=== PATIENT | female | born 1960 | race Caucasian/White ===

== ENCOUNTER → 2016-05-11 | Outpatient (CLI) | payer BC ==
[2016-05-11 09:33] LABS: ALT 55 U/L (9-52); AST 36 U/L (14-36); Alkaline Phosphatase 64 U/L (38-126); Anion Gap 12 mmol/L; Blood Urea Nitrogen 18 mg/dL (7-17); Calcium 9.2 mg/dL (8.4-10.2); Carbon Dioxide 24 mmol/L (22-30); Chloride 106 mmol/L (98-107); Cholesterol 189 mg/dL (<200); Glucose 113 mg/dL (74-99); HDL Cholesterol 58 mg/dL (40-60); Non-African American GFR(MDRD) >60 (>60 ml/min/1.73 sqM); Potassium 4.3 mmol/L (3.5-5.1); Sodium 142 mmol/L (137-145); Total Bilirubin 0.8 mg/dL (0.2-1.3); Total Protein 7.5 g/dL (6.3-8.2); Triglycerides 163 mg/dL (<150)
== END | disposition home or self-care (01) ==
LOC: LABWHC1 09:00
PROVIDERS: ATTEND Internal Medicine Interventional Cardiology
DX: E78.5 Hyperlipidemia, unspecified (principal)
CPT/HCPCS: 36415; 80053; 80061; 84443

== ENCOUNTER → 2017-06-11 | Outpatient (CLI) | payer BC ==
--- NOTE | 2017-06-11 15:42 | BD ---
EXAMINATION TYPE: MG DEXA axial skeleton. DATE OF EXAM: 06/11/2017 CLINICAL HISTORY: Z13.820 screening Height: 62.5 Weight: 148 FRAX RISK QUESTIONS: Alcohol (3 or more units per day): no Family History (Parent hip fracture): no Glucocorticoids (More than 3mos): emergency inhaler..infrequently (Ex: prednisone, prednisolone, methylprednisolone, dexamethasone, and hydrocortisone). History of Fracture in Adulthood: no Secondary Osteoporosis: 1. Type 1 Diabetes: yes 2. Hyperthyroidism: no 3. Menopause before 45: no 4. Malnutrition: no 5. Chronic liver disease: no Rheumatoid Arthritis: no Current Tobacco Use: no RISK FACTORS HISTORY OF: Family History of Osteoporosis: no Active: yes Diet low in dairy products/other sources of calcium: at least one serving a day Postmenopausal woman: yes Take estrogen and/or progesterone medications: no Lost more than 2 inches in height since high school: no Frequent falls: no Poor Health: no Hyperparathyroidism: no Adrenal Insufficiency: no MEDICATIONS: Prednisone or other steroids: emergency inhaler How Long: several years Thyroid Medications: no Osteoporosis Medications: no Additional Medications: insulin , calcium & Vitamin D Additional History: diabetic ; arthritis neck EXAM MEASUREMENTS: Bone mineral densitometry was performed using the [employer] System. Bone mineral density as measured about the Lumbar spine is: ----- L1-L4(G/cm2): 1.155 T Score Values are as follows: ----- L2: -0.7 ----- L3: 0.0 ----- L4: 0.1 ----- L1-L4: -0.2 Bone mineral density has: Decreased -4.1% since study of: 10/01/2011 Bone mineral density about the R hip (g/cm2): 0.966 Bone mineral density about the L hip (g/cm2): 0.906 T Score values are as follows: -----R Neck: -1.0 -----L Neck: -1.2 -----R Total: -0.6 -----L Total: -0.7 Bone mineral density has: Decreased -0.3% since study of: 10/01/2011 IMPRESSION: No evidence for osteoporosis or osteopenia. NOTE: T-SCORE=SD OF THE YOUNG ADULT MEAN.
--- NOTE | 2017-06-12 12:00 | MM ---
Reason for exam: screening (asymptomatic). Last mammogram was performed 2 years and 5 months ago. History: Patient is postmenopausal and had first child at age 33. Physical Findings: A clinical breast exam by your physician is recommended on an annual basis and results should be correlated with mammographic findings. MG 3D Screening Mammo W/Cad Bilateral CC and MLO view(s) were taken. Prior study comparison: January 07, 2015, bilateral MG 3d screening mammo w/cad. March 10, 2013, bilateral digital screening mammo w/CAD. The breast tissue is heterogeneously dense. This may lower the sensitivity of mammography. There is a stable right upper outer quadrant mass back to 2015. No suspicious abnormality. No significant changes when compared with prior studies. ASSESSMENT: Benign, BI-RAD 2 RECOMMENDATION: Routine screening mammogram of both breasts in 1 year.
== END | disposition home or self-care (01) ==
LOC: RADMAMWWP 07:35
PROVIDERS: ATTEND Obstetrics & Gynecology
DX: Z12.31 Encounter for screening mammogram for malignant neoplasm of breast (principal); Z13.820 Encounter for screening for osteoporosis
CPT/HCPCS: 77063; 77067; 77080

== ENCOUNTER → 2020-04-19 | Outpatient (CLI) | payer BC ==
[2020-04-19 11:15] LABS: HCT 42.4 % (37.2-46.3); HGB 14.3 g/dL (12.0-15.0); MCH 30.4 pg (27.0-32.0); MCHC 33.7 g/dL (32.0-37.0); Mean Platelet Volume 10.8 fL (9.5-12.2); Platelet Count 216 X 10*3/uL (140-440); RBC 4.71 X 10*6/uL (4.10-5.20); RDW 12.5 % (11.5-14.5); WBC 6.19 X 10*3/uL (4.50-10.00)
[2020-04-19 19:13] LABS: Chol/HDL Ratio 3.85; LDL Cholesterol,Calculated 105.2 mg/dL (0.0-131.0); VLDL Calculation 48.8 mg/dL (5.00-40.00)
[2020-04-19 19:14] LABS: African American GFR (CKD) 109.1 (60.0-200.0); Anion Gap 9.5 mmol/L (4.00-12.00); BUN/Creat Ratio 28.57 Ratio (12.00-20.00); Calcium 9.1 mg/dL (8.7-10.3); Carbon Dioxide 24.5 mmol/L (21.6-31.8); Non-African American GFR(CKD) 94.2 (60.0-200.0); Potassium 4.2 mmol/L (3.5-5.5)
== END | disposition home or self-care (01) ==
LOC: LABWHC1 07:05
PROVIDERS: ATTEND Internal Medicine Cardiovascular Disease
DX: E78.2 Mixed hyperlipidemia (principal); R06.02 Shortness of breath
CPT/HCPCS: 36415; 80048; 80061; 84443; 84450; 84460; 85027

== ENCOUNTER 2021-01-25 15:20 | Emergency (ER) | payer BC ==
[2021-01-25 15:38] VITALS: TEMP 98.1
[2021-01-25] MEDS ORDERED: FAMOTIDINE 20 MG/2 ML VIAL IV STA (16:04)
[2021-01-25] MEDS ORDERED: SODIUM CHLORIDE 0.9% 500 ML 500 ML IV STA (16:04)
--- NOTE | 2021-01-25 16:07 | ED ---
General Adult HPI - General Chief complaint: Abdominal Pain Stated complaint: Abd Pain Time Seen by Provider: 01/25/21 16:00 Source: patient, family (), RN notes reviewed, old records reviewed Mode of arrival: ambulatory Limitations: no limitations - History of Present Illness Initial comments: 60-year-old well-appearing female, alert and oriented 4, presents to the emergency room with her complaining of epigastric abdominal pain that started at 12:30 after eating spaghetti for lunch. Patient states that she became very nauseous and vomited. She has vomited 4 times between 12:30 and 2:00 today. She states that the pain is sharp in nature. She has never experienced this before. She called her primary care doctor who told her to come to the emergency room. She does have history of DM and is on insulin. She is also on metoprolol for irregular heartbeat that she takes at night. -: hour(s) (4) Location: abdomen (Epigastric) Radiation: non-radiation Severity scale (1-10): 0 Quality: sharp Consistency: now resolved Improves with: none Worsens with: none Associated Symptoms: nausea/vomiting Treatments Prior to Arrival: other (tums) - Related Data Home Medications Medication Instructions Recorded Confirmed Ascorbic Acid [Vitamin C] 500 mg PO DAILY 01/25/21 01/25/21 Cholecalciferol [Vitamin D3 (25 50 mcg PO DAILY 01/25/21 01/25/21 Mcg = 1000 Iu)] Glimepiride [Amaryl] 2 mg PO AC-BID 01/25/21 01/25/21 Insulin Aspart [NovoLOG Flexpen] See Protocol SQ AC-TID 01/25/21 01/25/21 Insulin Glargine,Hum.rec.anlog 28 unit SQ 01/25/21 01/25/21 [Lantus Solostar Pen] Loratadine [Claritin] 10 mg PO DAILY 01/25/21 01/25/21 Metoprolol Succinate [Toprol XL] 25 mg PO HS 01/25/21 01/25/21 Multivit-Min/Iron/Folic/Lutein 1 tab PO DAILY 01/25/21 01/25/21 [Centrum Silver Women Tablet] metFORMIN HCL [Glucophage] 1,000 mg PO BID 01/25/21 01/25/21 Allergies Allergy/AdvReac Type Severity Reaction Status Date / Time No Known Allergies Allergy Verified 01/25/21 17:25 Review of Systems ROS Statement: Those systems with pertinent positive or pertinent negative responses have been documented in the HPI. ROS Other: All systems not noted in ROS Statement are negative. Past Medical History Past Medical History: Diabetes Mellitus History of Any Multi-Drug Resistant Organisms: None Reported Past Surgical History: Section Additional Past Surgical History / Comment(s): D&C Past Psychological History: No Psychological Hx Reported Smoking Status: Former smoker Past Alcohol Use History: Occasional Past Drug Use History: None Reported General Exam Limitations: no limitations General appearance: alert, in no apparent distress Head exam: Present: atraumatic, normocephalic, normal inspection Eye exam: Present: normal appearance, EOMI ENT exam: Present: normal exam, normal oropharynx, mucous membranes moist Neck exam: Present: normal inspection, full ROM. Absent: tenderness, meningismus, lymphadenopathy Respiratory exam: Present: normal lung sounds bilaterally. Absent: respiratory distress, wheezes, rales, rhonchi, stridor, chest wall tenderness, accessory muscle use, decreased breath sounds Cardiovascular Exam: Present: regular rate, normal rhythm, normal heart sounds. Absent: systolic murmur, diastolic murmur, rubs, gallop, clicks, JVD GI/Abdominal exam: Present: soft, normal bowel sounds. Absent: distended, tenderness, guarding, rebound, rigid Extremities exam: Present: normal inspection, full ROM, normal capillary refill. Absent: tenderness, pedal edema, joint swelling, calf tenderness Back exam: Present: normal inspection, full ROM. Absent: tenderness, CVA tenderness (R), CVA tenderness (L), rash noted Neurological exam: Present: alert, oriented X3 Psychiatric exam: Present: normal affect, normal mood. Absent: anxious Skin exam: Present: warm, dry, intact, normal color. Absent: rash, cyanosis, d iaphoretic, petechiae, pallor Course Vital Signs 01/25/21 01/25/21 01/25/21 15:35 17:11 20:00 Temperature 98.1 F Pulse Rate 85 88 86 Respiratory 20 18 18 Rate Blood Pressure 142/73 144/75 133/83 O2 Sat by Pulse 99 98 97 Oximetry EKG Findings - EKG Results: EKG: sinus rhythm (Ventricular rate of 79, AR interval 0.158, QRS 0.78, QTC 0.424) Medical Decision Making - Medical Decision Making 60-year-old female presents to the emergency room with a sudden onset of nausea and vomiting after eating spaghetti this afternoon. She states that she had epigastric abdominal pain causing her to vomit 4 times. She has not had any further vomiting or pain in the emergency room. Her abdomen is soft and nontender. Lab work shows no evidence of leukocytosis., Troponin is negative at 0.012 and EKG normal sinus rhythm. Glucose is 314 and she was given a liter of normal saline. She does have 4+ glucose in her urine. She does have a history of diabetes and she states her primary care doctor has adjusted her insulin for elevated A1c and blood glucose levels.Coronavirus testing is negative. Total bili is 1.7, ALT 93 AST 169. Ultrasound of gallbladder shows multiple gallstones but no dilated ducts. She'll be discharged home to follow up with her primary care doctor and directed to participate in a gallbladder friendly diet. Eat multiple small meals and not 3 large meals a day. Case discussed with Dr. Daily - Lab Data Result diagrams: 01/25/21 16:15 01/25/21 16:15 Lab Results 01/25/21 01/25/21 01/25/21 Range/Units 16:15 16:15 16:15 WBC 10.0 (3.8-10.6) k/uL RBC 4.78 (3.80-5.40) m/uL Hgb 14.7 (11.4-16.0) gm/dL Hct 44.3 (34.0-46.0) % MCV 92.7 (80.0-100.0) fL MCH 30.7 (25.0-35.0) pg MCHC 33.2 (31.0-37.0) g/dL RDW 12.5 (11.5-15.5) % Plt Count 207 (150-450) k/uL MPV 8.1 Neutrophils % 74 % Lymphocytes % 18 % Monocytes % 5 % Eosinophils % 1 % Basophils % 1 % Neutrophils # 7.4 (1.3-7.7) k/uL Lymphocytes # 1.8 (1.0-4.8) k/uL Monocytes # 0.5 (0-1.0) k/uL Eosinophils # 0.1 (0-0.7) k/uL Basophils # 0.1 (0-0.2) k/uL Sodium 134 L (137-145) mmol/L Potassium 5.2 H (3.5-5.1) mmol/L Chloride 100 (98-107) mmol/L Carbon Dioxide 21 L (22-30) mmol/L Anion Gap 13 mmol/L BUN 18 H (7-17) mg/dL Creatinine 0.57 (0.52-1.04) mg/dL Est GFR (CKD-EPI)AfAm >90 (>60 ml/min/1.73 sqM) Est GFR (CKD-EPI)NonAf >90 (>60 ml/min/1.73 sqM) Glucose 314 H (74-99) mg/dL Calcium 9.4 (8.4-10.2) mg/dL Total Bilirubin 1.7 H (0.2-1.3) mg/dL AST 169 H (14-36) U/L ALT 93 H (4-34) U/L Alkaline Phosphatase 94 (38-126) U/L Troponin I <0.012 (0.000-0.034) ng/mL Total Protein 8.0 (6.3-8.2) g/dL Albumin 4.5 (3.5-5.0) g/dL Amylase 59 (30-110) U/L Lipase 159 (23-300) U/L Urine Color Urine Appearance (Clear) Urine pH (5.0-8.0) Ur Specific [place] (1.001-1.035) Urine Protein (Negative) Urine Glucose (UA) (Negative) Urine Ketones (Negative) Urine Blood (Negative) Urine Nitrite (Negative) Urine Bilirubin (Negative) Urine Urobilinogen (<2.0) mg/dL Ur Leukocyte Esterase (Negative) Urine RBC (0-5) /hpf Urine WBC (0-5) /hpf Ur Squamous Epith Cells (0-4) /hpf Urine Bacteria (None) /hpf Hyaline Casts (0-2) /lpf Urine Mucus (None) /hpf Coronavirus (PCR) (Not Detectd) 01/25/21 01/25/21 Range/Units 16:21 18:02 WBC (3.8-10.6) k/uL RBC (3.80-5.40) m/uL Hgb (11.4-16.0) gm/dL Hct (34.0-46.0) % MCV (80.0-100.0) fL MCH (25.0-35.0) pg MCHC (31.0-37.0) g/dL RDW (11.5-15.5) % Plt Count (150-450) k/uL MPV Neutrophils % % Lymphocytes % % Monocytes % % Eosinophils % % Basophils % % Neutrophils # (1.3-7.7) k/uL Lymphocytes # (1.0-4.8) k/uL Monocytes # (0-1.0) k/uL Eosinophils # (0-0.7) k/uL Basophils # (0-0.2) k/uL Sodium (137-145) mmol/L Potassium (3.5-5.1) mmol/L Chloride (98-107) mmol/L Carbon Dioxide (22-30) mmol/L Anion Gap mmol/L BUN (7-17) mg/dL Creatinine (0.52-1.04) mg/dL Est GFR (CKD-EPI)AfAm (>60 ml/min/1.73 sqM) Est GFR (CKD-EPI)NonAf (>60 ml/min/1.73 sqM) Glucose (74-99) mg/dL Calcium (8.4-10.2) mg/dL Total Bilirubin (0.2-1.3) mg/dL AST (14-36) U/L ALT (4-34) U/L Alkaline Phosphatase (38-126) U/L Troponin I (0.000-0.034) ng/mL Total Protein (6.3-8.2) g/dL Albumin (3.5-5.0) g/dL Amylase (30-110) U/L Lipase (23-300) U/L Urine Color Yellow Urine Appearance Cloudy H (Clear) Urine pH 5.5 (5.0-8.0) Ur Specific [place] 1.024 (1.001-1.035) Urine Protein Trace H (Negative) Urine Glucose (UA) 4+ H (Negative) Urine Ketones Negative (Negative) Urine Blood Negative (Negative) Urine Nitrite Negative (Negative) Urine Bilirubin Negative (Negative) Urine Urobilinogen 2.0 (<2.0) mg/dL Ur Leukocyte Esterase Moderate H (Negative) Urine RBC 2 (0-5) /hpf Urine WBC 30 H (0-5) /hpf Ur Squamous Epith Cells 1 (0-4) /hpf Urine Bacteria Rare H (None) /hpf Hyaline Casts 1 (0-2) /lpf Urine Mucus Rare H (None) /hpf Coronavirus (PCR) Not Detected (Not Detectd) Disposition Clinical Impression: Gallstones Disposition: HOME SELF-CARE Condition: Good Additional Instructions: Follow-up with the primary care doctor this week. Return to the emergency room with any new or worsening symptoms. A gallbladder friendly diet which includes high intake of fresh fruits and vegetables, lowfat dairy products. Eat small meals throughout the day instead of 3 large meals. Is patient prescribed a controlled substance at d/c from ED?: No Referrals: Amina Serrano MD [Primary Care Provider] - 1-2 days Time of Disposition: 20:21
[2021-01-25 16:24] LABS: Basophils # (A) 0.1 k/uL (0-0.2); Basophils % (A) 1 %; Eosinophils # (A) 0.1 k/uL (0-0.7); Eosinophils % (A) 1 %; HCT 44.3 % (34.0-46.0); HGB 14.7 gm/dL (11.4-16.0); Lymphocytes # (A) 1.8 k/uL (1.0-4.8); Lymphocytes % (A) 18 %; MCH 30.7 pg (25.0-35.0); MCHC 33.2 g/dL (31.0-37.0); MCV 92.7 fL (80.0-100.0); Mean Platelet Volume 8.1; Monocytes # (A) 0.5 k/uL (0-1.0); Monocytes % (A) 5 %; Neutrophils # (A) 7.4 k/uL (1.3-7.7); Neutrophils % (A) 74 %; Platelet Count 207 k/uL (150-450); RBC 4.78 m/uL (3.80-5.40); RDW 12.5 % (11.5-15.5)
[2021-01-25 16:32] LABS: Potassium 5.2 mmol/L (3.5-5.1)
[2021-01-25 16:33] LABS: ALT 93 U/L (4-34); AST 169 U/L (14-36); African American GFR (CKD) >90 (>60 ml/min/1.73 sqM); Albumin 4.5 g/dL (3.5-5.0); Alkaline Phosphatase 94 U/L (38-126); Amylase 59 U/L (30-110); Anion Gap 13 mmol/L; Blood Urea Nitrogen 18 mg/dL (7-17); Calcium 9.4 mg/dL (8.4-10.2); Carbon Dioxide 21 mmol/L (22-30); Chloride 100 mmol/L (98-107); Glucose 314 mg/dL (74-99); Lipase 159 U/L (23-300); Non-African American GFR(CKD) >90 (>60 ml/min/1.73 sqM); Sodium 134 mmol/L (137-145); Total Bilirubin 1.7 mg/dL (0.2-1.3)
--- NOTE | 2021-01-25 16:49 | XR ---
EXAMINATION TYPE: XR chest 2V DATE OF EXAM: 01/25/2021 COMPARISON: Chest x-ray 01/26/2019 HISTORY: Cough TECHNIQUE: Frontal and lateral views of the chest are obtained. FINDINGS: There is no focal air space opacity, pleural effusion, or pneumothorax seen. The cardiac silhouette size is within normal limits. Lung volumes are low. Patient is rotated. The osseous struc tures are intact. IMPRESSION: No acute cardiopulmonary process.
[2021-01-25 17:12] VITALS: RESP 18
[2021-01-25] MEDS ORDERED: SODIUM CHLORIDE 0.9% 500 ML 500 ML IV ONE (17:21)
[2021-01-25 17:22] LABS: Appearance,Urine Cloudy (Clear); Bacteria,Urine Rare /hpf; Bilirubin,Urine Negative (Negative); Blood,Urine Negative (Negative); Color,Urine Yellow; Glucose,Urine (UA) 4+ (Negative); Hyaline Casts,Urine 1 /lpf (0-2); Ketones,Urine Negative (Negative); Leukocyte Esterase,Urine Moderate (Negative); Mucus,Urine Rare /hpf; Nitrite,Urine Negative (Negative); PH, Urine 5.5 (5.0-8.0); Protein,Urine Trace (Negative); RBC,Urine 2 /hpf (0-5); Specific Gravity,Urine 1.024 (1.001-1.035); Squamous Epithelial Cell,Urine 1 /hpf (0-4); WBC,Urine 30 /hpf (0-5)
--- NOTE | 2021-01-25 20:05 | US ---
EXAMINATION TYPE: US gallbladder DATE OF EXAM: 01/25/2021 COMPARISON: US kidneys. CLINICAL HISTORY: Hyperbilirubinemia, vomiting. Hyperbilirubinemia, vomiting. EXAM MEASUREMENTS: Liver Length: 19.2 cm Gallbladder Wall: 0.27 cm CBD: 0.42 cm Right Kidney: 9.3 x 5.5 x 5.4 cm Limited due to gas. Pancreas: Limited visibility of tail. Liver: Appears enlarged and course in echotexture. Hypoechoic area seen adjacent to the gallbladder measuring 2.0 x 1.9 x 1.2 cm. Gallbladder: Hyperechoic area with posterior shadowing seen within: 1.8 x 1.4 x 0.5 cm. Evidence for sonographic Lundberg's sign: Patient feels pain within RUQ. CBD: Portions seen appear wnl. Right Kidney: Appearance of possible column of Gustavo. IMPRESSION: There are multiple gallstones. No dilated ducts. Normal right kidney.
[2021-01-25 20:15] VITALS: BP 133/83; PULSE 86
== END 2021-01-25 20:45 | disposition home or self-care (01) ==
LOC: EC 15:20
DX: K80.80 Other cholelithiasis without obstruction (principal); E11.9 Type 2 diabetes mellitus without complications; Z20.822 Contact with and (suspected) exposure to COVID-19; Z79.4 Long term (current) use of insulin; Z79.84 Long term (current) use of oral hypoglycemic drugs; Z87.891 Personal history of nicotine dependence
CPT/HCPCS: 36415; 71046; 76705; 80053; 81001; 82150; 83690; 84484; 85025; 87086; 87635; 93005; 96374; 99284

== ENCOUNTER → 2021-04-28 | Outpatient (CLI) | payer BC ==
[2021-04-28 10:58] LABS: African American GFR (CKD) >90 (>60 ml/min/1.73 sqM); Blood Urea Nitrogen 13 mg/dL (7-17); Non-African American GFR(CKD) >90 (>60 ml/min/1.73 sqM)
--- NOTE | 2021-04-28 11:38 | CT ---
EXAMINATION TYPE: CT abdomen w con DATE OF EXAM: 04/28/2021 COMPARISON: No previous CT scan is available for comparison. HISTORY: Right upper quadrant abdominal pain. CT DLP: 702 mGycm Automated exposure control for dose reduction was used. TECHNIQUE: Helical acquisition of images was performed from the lung bases through the top of iliac crest to include entire abdomen. CONTRAST: Performed with Oral Contrast and with IV Contrast, patient injected with 100ml mL of Isovue 300. FINDINGS: LUNG BASES: No significant abnormality is appreciated. LIVER/GB: Severely hypodense hepatic parenchyma with nodular outline suggestive of fatty infiltration with possible cirrhosis, please correlate clinically and with liver function tests. With this limita tion, no definite hepatic focal lesion identified. A few calculi seen in the gallbladder neck measuri ng up to 6 mm. No evidence cholecystitis. No intra or extrahepatic dilatation. PANCREAS: No significant abnormality is seen. SPLEEN: No significant abnormality is seen. ADRENALS: No significant abnormality is seen. KIDNEYS: Bilateral subcentimeter renal hypodensities, likely representing renal cysts. Otherwise unre markable kidneys. BOWEL: Unremarkable stomach, duodenum and visualized small bowel. No gross abnormality of the visual ized portion of the colon. LYMPH NODES: No pathologically enlarged abdominal lymph nodes. No sizable ascites. OSSEOUS STRUCTURES: No aggressive bone lesion. FREE AIR: No free air is visualized. OTHER: Minimal arterial atherosclerotic calcifications. Collapsed IVC. IMPRESSION: Cholelithiasis without evidence of acute cholecystitis. Severely hypodense hepatic parenchyma likely representing severe hepatic steatosis with possible hepatic cirrhosis. Recommend clinical correlation , correlation with liver function tests and further workup. Other incidental findings as described ab ove.
== END | disposition home or self-care (01) ==
LOC: RADCTMAIN 10:03
PROVIDERS: ATTEND Surgery
DX: K80.20 Calculus of gallbladder without cholecystitis without obstruction (principal); K76.89 Other specified diseases of liver
CPT/HCPCS: 82565; 84520; 74160; 36415; Q9967

== ENCOUNTER → 2021-05-09 | Outpatient (CLI) | payer BC ==
[2021-05-09 11:00] LABS: ALT 46 U/L (8-44); AST 27 U/L (13-35); African American GFR (CKD) 108.4 (60.0-200.0); Albumin 4.5 g/dL (3.8-4.9); Albumin/Globulin Ratio 1.73 (1.60-3.17); Alkaline Phosphatase 69 U/L (41-126); BUN/Creat Ratio 21.71 Ratio (12.00-20.00); Blood Urea Nitrogen 15.2 mg/dL (9.0-27.0); Calcium 9.2 mg/dL (8.7-10.3); Carbon Dioxide 21.1 mmol/L (20.0-27.5); Chloride 104 mmol/L (96-109); Chol/HDL Ratio 4.62 Ratio; Globulin 2.6 g/dL (1.6-3.3); Glucose 172 mg/dL (70-110); LDL Cholesterol,Calculated 127.7 mg/dL (0.0-131.0); Non-African American GFR(CKD) 93.5 (60.0-200.0); Potassium 4.4 mmol/L (3.5-5.5); Sodium 138 mmol/L (135-145); Total Protein 7.1 g/dL (6.2-8.2)
== END | disposition home or self-care (01) ==
LOC: LABWHC1 07:08
PROVIDERS: ATTEND Internal Medicine Cardiovascular Disease
DX: E78.2 Mixed hyperlipidemia (principal); K81.1 Chronic cholecystitis
CPT/HCPCS: 36415; 80053; 80061

== ENCOUNTER 2021-05-22 11:14 | Day surgery (SDC) | payer BC ==
[2021-05-18 11:27] VITALS: BMI 28.5
--- NOTE | 2021-05-22 09:12 | P.GSHP ---
History of Present Illness H&P Date: 05/22/21 Chief Complaint: Chronic cholecystitis 60-year-old female seen in the office approximately one month ago. Patient with episodes of right upper quadrant pain with nausea and vomiting. She had elevation of her bilirubin and transaminases. These improved on recent recheck. An area of hypoechoic liver was seen adjacent to the gallbladder. CAT scan was performed to rule out any other abnormalities and liver disease was suspected on that study. Patient without history of liver problems in the past. Thankfully she has had no further attacks of right upper quadrant pain. Here today for cholecystectomy. Past Medical History Past Medical History: Asthma, Diabetes Mellitus Additional Past Medical History / Comment(s): Occ fast heart rate. Elev triglycerides. Recent abn liver tests. Current gallstones History of Any Multi-Drug Resistant Organisms: None Reported Past Surgical History: Section Additional Past Surgical History / Comment(s): D&C. Skin graft fingers as child. Colonoscopy Past Anesthesia/Blood Transfusion Reactions: No Reported Reaction Smoking Status: Former smoker - Past Family History Mother Family Medical History: Cancer Additional Family Medical History / Comment(s): liver cancer mets Sister(s) Family Medical History: Cancer Additional Family Medical History / Comment(s): 1 with thyroid, 1 with uterine, 1 with stomach cancers Medications and Allergies Home Medications Medication Instructions Recorded Confirmed Type Ascorbic Acid [Vitamin C] 500 mg PO DAILY 01/25/21 05/18/21 History Cholecalciferol [Vitamin D3 (25 50 mcg PO DAILY 01/25/21 05/18/21 History Mcg = 1000 Iu)] Glimepiride [Amaryl] 2 mg PO AC-BID 01/25/21 05/18/21 History Insulin Aspart [NovoLOG Flexpen] See Protocol SQ AC-TID 01/25/21 05/18/21 History Insulin Glargine,Hum.rec.anlog 28 unit SQ HS 01/25/21 05/18/21 History [Lantus Solostar Pen] Loratadine [Claritin] 10 mg PO DAILY 01/25/21 05/18/21 History Metoprolol Succinate [Toprol XL] 25 mg PO HS 01/25/21 05/18/21 History Multivit-Min/Iron/Folic/Lutein 1 tab PO DAILY 01/25/21 05/18/21 History [Centrum Silver Women Tablet] metFORMIN HCL [Glucophage] 1,000 mg PO BID 01/25/21 05/18/21 History Albuterol Inhaler [Ventolin Hfa 1 - 2 puff INHALATION RT-QID PRN 05/18/21 05/18/21 History Inhaler] Allergies Allergy/AdvReac Type Severity Reaction Status Date / Time No Known Allergies Allergy Verified 05/18/21 10:56 Surgical - Exam Physical exam: General: Well-developed, well-nourished HEENT: Normocephalic, sclerae nonicteric Abdomen: Nontender, nondistended Extremities: No edema Neuro: Alert and oriented Assessment and Plan (1) Chronic cholecystitis Narrative/Plan: 60-year-old female with chronic cholecystitis. Possible underlying hepatocellular disease. We'll proceed with laparoscopic cholecystectomy, possible open. Risks of bleeding, infection, bile leak, bile duct injury, retained common bile duct stone, trocar injury, conversion to an open procedure, hernia, anesthesia related complications were reviewed. Also discussed possibility of seeding with liver biopsy if cirrhosis is suspected clinically during surgery. The patient understands and wishes to proceed. Status: Acute Code(s): K81.1 - CHRONIC CHOLECYSTITIS SNOMED Code(s): 50213945
[~2021-05-22 11:14] MED LIST: ACETAMINOPHEN TAB 500 MG TAB PO PRN; DEXAMETHASONE SOD PHOSPHATE 4 MG/ML 1 ML VIAL IV ONE; HEPARIN SODIUM,PORCINE/PF 5,000 UNIT/0.5 ML SYRINGE SQ PRN; LACTATED RINGERS 1,000 ML IV SCH; LIDOCAINE 1% (10MG/ML) FOR IV START INTRADERMA PRN; ONDANSETRON 4 MG/2 ML VIAL IVP ONE
[2021-05-22 12:00] VITALS: RESP 16
[2021-05-22 12:14] LABS: Glucose,Whole Blood 116 mg/dL (75-99)
[2021-05-22] MEDS ORDERED: LIDOCAINE 1% INJ 10MG/ML (20 ML MDV) ONE (13:12)
[2021-05-22] MEDS ORDERED: MIDAZOLAM 2 MG/2 ML VIAL ONE (13:12)
[2021-05-22] MEDS ORDERED: SUCCINYLCHOLINE CHLORIDE 100 MG/5 ML SYR IV ONE (13:12)
[2021-05-22] MEDS ORDERED: fentaNYL (PF) 50 MCG/ML 2 ML AMP ONE (13:12)
[2021-05-22] MEDS ORDERED: NEOSTIGMINE 1 MG/ML 10 ML VIAL ONE (13:12)
[2021-05-22] MEDS ORDERED: GLYCOPYRROLATE 0.2 MG/ML 2 ML VIAL ONE (13:12)
[2021-05-22] MEDS ORDERED: PROPOFOL 10 MG/ML 20 ML VIAL IV ONE (13:12)
[2021-05-22] MEDS ORDERED: ROCURONIUM 10 MG/ML (5 ML VIAL) IV ONE (13:12)
[2021-05-22] MEDS ORDERED: BUPIVACAIN-EPI 0.25%-1:200,000 30 ML VIAL SQ ONE ×2 (13:38→14:15)
[2021-05-22] MEDS ORDERED: SODIUM CHLORIDE 0.9% 500 ML 500 ML IV ONE (14:18)
--- NOTE | 2021-05-22 14:38 | P.OP ---
Date of Procedure: 05/22/21 Procedure(s) Performed: PREOPERATIVE DIAGNOSIS: Chronic cholecystitis POSTOPERATIVE DIAGNOSIS: Same, hepatocellular disease PROCEDURE: Laparoscopic cholecystectomy with Gavin-Cut needle biopsy SURGEON: Madeline EBL: Darrius Monsivais ANESTHESIA: Gen. COMPLICATIONS: None OPERATIVE PROCEDURE: The patient was brought and placed on the operating room table in the supine position. The patient was placed under general anesthesia at that time. The abdomen was prepped and draped in the usual sterile fashion. A small vertical infraumbilical incision was made. The fascia was grasped with the Diana forceps. The fascia was retracted anteriorly. The Veress needle was advanced into the peritoneal cavity. The saline drop test was normal. Insufflation took place up to 15 mmHg. A 5 mm optical trocar was advanced and the peritoneal cavity. 2 additional 5 mm trochars were placed in the right upper quadrant under direct visualization. A 12 mm trocar was advanced into the epigastric incision site. The patient's liver was inspected and didn't fact appear to have significant nodularity consistent with some degree of h epatocellular disease. The gallbladder was somewhat tense. It did appear to be inflamed. The gallbladder was retracted superiorly and laterally. The peritoneum overlying the infundibulum was bluntly dissected. The patient's cystic duct was visualized. The junction between the cystic duct common and hepatic duct was identified. The critical view of safety was achieved after blunt dissection. The cystic duct was then divided after placement of 3 12 mm clips on the patient's side and one on the specimen side. I was able to palpate 2 small stones within the cystic duct and milked them proximally. The cystic artery was identified and clipped as well. A small vessel was seen along the gallbladder fossa and clipped as well. The gallbladder was then removed from the liver bed using electrocautery. The gallbladder was then removed from the epigastric trocar site with an Endo Catch bag. The gallbladder fossa was irrigated with saline. There was no evidence of any bleeding or biliary drainage seen. I did proceed with a Gavin-Cut core biopsy of the liver at that time. A small incision was made in the right subcostal location. The 14-gauge Gavin-Cut needle was used to take 3 core biopsies of the liver lateral to the gallbladder fossa. The exit sites were controlled for bleeding with electrocautery. No further bleeding or bilious drainage was seen. The fascia at the 12 millimeter site was closed using a Jose ManuelTimothyOnel 0 Vicryl stitch. The trochars were then removed. The skin at all 4 sites was closed using a 4-0 Monocryl stitch. Skin glue was utilized on the incision sites. At the end of this procedure the sponge and needle counts were correct. DISPOSITION: Stable to the recovery room
[2021-05-22 14:51] VITALS: TEMP 97.9
[2021-05-22] MEDS: HYDROmorphone 0.5 MG/0.5 ML SYRINGE IVP PRN ×2 (14:58→15:20)
[2021-05-22] MEDS ORDERED: KETOROLAC 15 MG/ML 1 ML VIAL IVP ONE (14:58)
[2021-05-22 15:09] LABS: Glucose,Whole Blood 169 mg/dL (75-99)
[2021-05-22 16:52] VITALS: BP 162/66; PULSE 88
[2021-05-22] MEDS ORDERED: ACETAMINOPHEN TAB 325 MG TAB PO SCH (18:00)
[2021-05-22] MEDS ORDERED: IBUPROFEN 600 MG TAB PO SCH (21:00)
== END 2021-05-22 16:55 | disposition home or self-care (01) ==
LOC: OR 11:14
PROVIDERS: ATTEND Surgery
DX: K80.10 Calculus of gallbladder with chronic cholecystitis without obstruction (principal); K76.9 Liver disease, unspecified; E11.9 Type 2 diabetes mellitus without complications; Z98.891 History of uterine scar from previous surgery; Z98.890 Other specified postprocedural states; Z83.3 Family history of diabetes mellitus; Z82.49 Family history of ischemic heart disease and other diseases of the circulatory system; J45.909 Unspecified asthma, uncomplicated; Z87.891 Personal history of nicotine dependence; Z80.0 Family history of malignant neoplasm of digestive organs; Z83.49 Family history of other endocrine, nutritional and metabolic diseases; Z79.84 Long term (current) use of oral hypoglycemic drugs; Z79.4 Long term (current) use of insulin; Z79.899 Other long term (current) drug therapy
CPT/HCPCS: 47562; 88304; 88313; 88307; J2250; J1100; J2710; J2405; J2001; J3010; J1885; J0330; J2704; J1170; J1644

== ENCOUNTER → 2021-10-19 | Outpatient (CLI) | payer BC ==
--- NOTE | 2021-10-20 10:28 | MM ---
Reason for Exam: Screening (asymptomatic). Last mammogram was performed 4 year(s) and 5 month(s) ago. Patient History: Menarche at age 11. First Full-Term at age 33. Late child-bearing (after 30). Postmenopausal. Risk Values: Lachelle 5 year model risk: 2.1%. NCI Lifetime model risk: 9.4%. Prior Study Comparison: 03/10/2013 Bilateral Screening Mammogram, [facility]. 01/07/2015 Bilateral Screening Mammogram, [facility]. 06/11/2017 Bilateral Screening Mammogram, [facility]. Tissue Density: The breast tissue is heterogeneously dense. This may lower the sensitivity of mammography. Findings: Analyzed By CAD. Chronic nodularity is within the right breast. Pattern appears symmetrical and stable. No significant interval changes are evident. Benign spherical calcifications within the left breast. There are new punctate calcifications in 2 areas on the craniocaudal view. The more anterior identified on the mediolateral oblique view. Additional workup with magnification views in the craniocaudal and mediolateral oblique views as well as standard left mediolateral view is recommended. Overall Assessment: Incomplete: need additional imaging evaluation, BI-RAD 0 Management: Diagnostic Mammogram of the left breast. A negative mammogram report should not preclude additional follow up of suspicious palpable abnormalities. Patient should continue monthly self breast exam. A clinical breast exam by your physician is recommended on an annual basis and results should be correlated with mammographic findings. Electronically signed and approved by: Trevor Kahn D.O. Radiologis
== END | disposition home or self-care (01) ==
LOC: RADMAMWWP 16:15
PROVIDERS: ATTEND Obstetrics & Gynecology
DX: Z12.31 Encounter for screening mammogram for malignant neoplasm of breast (principal); Z78.0 Asymptomatic menopausal state
CPT/HCPCS: 77063; 77067

== ENCOUNTER → 2021-10-25 | Outpatient (CLI) | payer BC ==
--- NOTE | 2021-10-25 13:02 | MM ---
Reason for Exam: Additional evaluation requested from abnormal screening. Last screening mammogram was performed less than 1 month ago. Patient History: Menarche at age 11. First Full-Term at age 33. Late child-bearing (after 30). Postmenopausal. Risk Values: Lachelle 5 year model risk: 2.1%. NCI Lifetime model risk: 9.4%. Prior Study Comparison: 10/01/2011 Bilateral Screening Mammogram, [facility]. 03/10/2013 Bilateral Screening Mammogram, [facility] 01/07/2015 Bilateral Screening Mammogram, [facility] 06/11/2017 Bilateral Screening Mammogram, [facility]. 10/19/2021 Bilateral MG 3D screening mammo w/cad, [facility]. Tissue Density: Left: The breast tissue is heterogeneously dense. This may lower the sensitivity of mammography. Findings: Analyzed By CAD. There are suspicious grouped fine calcifications in the left breast outer quadrant anterior position 3cm from the nipple. This finding is changed when compared with previous exams. Overall Assessment: Suspicious, BI-RAD 4 Management: Stereotactic Core Biopsy of the left breast. A clinical breast exam by your physician is recommended on an annual basis and results should be correlated with mammographic findings. This exam should not preclude additional follow-up of suspicious palpable abnormalities. Results were given to the patient verbally at the time of exam. Electronically signed and approved by: Trevor Kahn D.O. Radiologis
== END | disposition home or self-care (01) ==
LOC: RADMAMWWP 08:19
PROVIDERS: ATTEND Obstetrics & Gynecology
DX: R92.8 Other abnormal and inconclusive findings on diagnostic imaging of breast (principal); Z78.0 Asymptomatic menopausal state
CPT/HCPCS: 77061; 77065

== ENCOUNTER → 2021-11-06 | Day surgery (SDC) | payer BC ==
[2021-11-06 07:37] VITALS: RESP 16
[2021-11-06 08:55] VITALS: BP 128/77; PULSE 70; TEMP 98.1
--- NOTE | 2021-11-13 09:17 | MM ---
Risk Values: Lachelle 5 year model risk: 2.1%. NCI Lifetime model risk: 9.4%. Prior Study Comparison: 06/11/2017 Bilateral Screening Mammogram, [facility]. 10/19/2021 Bilateral MG 3D screening mammo w/cad, [facility]. 10/25/2021 Left MG 3D work up w/cad , [facility]. Pathology Description: Location: 2 o'clock, anterior, central. Marker Left Behind. Specimen Radiograph. Calcium Found: Yes Approach: CC FA Needle Type: Eviva Cores: 10 Skin Nicks: 1 Gauge: 9 The procedure of stereotactic guided core biopsy was explained to the patient. Benefits, alternatives, and risks were discussed. An informed consent was then obtained. The shortness pathway for biopsy was chosen. [facility] was a superior approach. I performed the localization, followed by the remainder of the procedure. A vacuum assisted biopsy gun was used to obtain 10 core samples. The patient tolerated the procedure well without any immediate complication. The patient was kept in the radiology department for short stay after the procedure and then discharged home in stable condition. Targeted calcifications are identified in specimen mammogram. Post biopsy mammogram shows the clip to appear in satisfactory position relative to the targeted area of concern on the preprocedure images. Post procedure mammogram shows clip in satisfactory position upper outer quadrant central anterior left breast. Impression: SUCCESSFUL, UNCOMPLICATED STEREOTACTIC GUIDED CORE BIOPSY OF CENTRAL UPPER OUTER QUADRANT ANTERIOR LEFT BREAST MICROCALCIFICATIONS. Pathology Results: Result: Benign, Fibroadenomatoid hyperplasia. LEFT BREAST, CORE BIOPSY: Fibrosis with fibroadenomatoid hyperplasia, fibrocystic change and columnar cell change with focal microcalcification. See note. Negative for in situ or invasive carcinoma. Overall Assessment: Benign Management: Diagnostic Mammogram of the left breast in 6 months. Electronically signed and approved by: Lindsey Alonso M.D. Radiologist
== END ==
LOC: RADMAMWWP 07:15
PROVIDERS: ATTEND Surgery
DX: N60.32 Fibrosclerosis of left breast (principal); N60.82 Other benign mammary dysplasias of left breast; R92.8 Other abnormal and inconclusive findings on diagnostic imaging of breast
CPT/HCPCS: 88305; 19081; A4648; J2001

== ENCOUNTER → 2022-02-01 | Outpatient (CLI) | payer BC ==
[2022-02-01 17:30] LABS: ALT 37 U/L (8-44); AST 26 U/L (13-35); Chol/HDL Ratio 3.74 Ratio; LDL Cholesterol,Calculated 118.7 mg/dL (0.0-131.0)
== END | disposition home or self-care (01) ==
LOC: LABWHC1 07:16
PROVIDERS: ATTEND Internal Medicine Cardiovascular Disease
DX: E78.2 Mixed hyperlipidemia (principal)
CPT/HCPCS: 36415; 80061; 84450; 84460

== ENCOUNTER → 2022-05-07 | Outpatient (CLI) | payer BC ==
--- NOTE | 2022-05-07 11:22 | MM ---
Reason for Exam: Follow-up at short interval from prior study. Last screening mammogram was performed 6 month(s) ago. Patient History: Menarche at age 11. First Full-Term at age 33. Late child-bearing (after 30). Postmenopausal. Previous Hyperplasia w/o Atypia at age 61. 11/06/2021, Benign MG stereo VAD BX LT on the left side. Risk Values: Lachelle 5 year model risk: 2.5%. NCI Lifetime model risk: 11.0%. Prior Study Comparison: 06/11/2017 Bilateral Screening Mammogram, [facility]. 10/19/2021 Bilateral MG 3D screening mammo w/cad, [facility]. 10/25/2021 Left MG 3D work up w/cad LT, [facility]. Tissue Density: Left: The breast tissue is heterogeneously dense. This may lower the sensitivity of mammography. Findings: Analyzed By CAD. Biopsy clip anteriorly in the left breast is now present. No suspicious new mass or worrisome group of microcalcifications in the left breast. Overall Assessment: Benign, BI-RAD 2 Management: Screening Mammogram of both breasts in 6 months. Back on schedule. Results were given to the patient verbally at the time of exam. Electronically signed and approved by: Dwaine Clay M.D.
== END | disposition home or self-care (01) ==
LOC: RADMAMWWP 11:00
PROVIDERS: ATTEND Surgery
DX: R92.8 Other abnormal and inconclusive findings on diagnostic imaging of breast (principal); Z78.0 Asymptomatic menopausal state
CPT/HCPCS: 77061; 77065

== ENCOUNTER → 2023-03-22 | Outpatient (CLI) | payer BC ==
--- NOTE | 2023-03-25 07:28 | MM ---
Reason for Exam: Screening (asymptomatic). Last mammogram was performed 1 year(s) and 5 month(s) ago. Patient History: Menarche at age 11. First Full-Term at age 33. Late child-bearing (after 30). Postmenopausal. Previous Hyperplasia w/o Atypia at age 61. 11/06/2021, Benign MG stereo VAD BX LT on the left side. Risk Values: Lachelle 5 year model risk: 2.6%. NCI Lifetime model risk: 10.7%. Prior Study Comparison: 10/19/2021 Bilateral MG 3D screening mammo w/cad, [facility]. 10/25/2021 Left MG 3D work up w/cad LT, [facility]. 05/07/2022 Left MG 3D diag mammo w/cad LT, [facility]. Tissue Density: There are scattered fibroglandular densities. Findings: Analyzed By CAD. There is no suspicious group of microcalcifications or new suspicious mass. Overall Assessment: Negative, BI-RAD 1 Management: Screening Mammogram of both breasts in [address] [facility] will attempt to contact patient to return for supplemental views and ultrasound if indicated. Patient should continue monthly self-breast exams. A clinical breast exam by your physician is recommended on an annual basis. This exam should not preclude additional follow-up of suspicious palpable abnormalities. Note on Lachelle scores and lifetime risk: 1. A Lachelle score greater than 3% is considered moderate risk. If this is the case, consider specialist referral to assess eligibility for a risk reducing agent. 2. If overall lifetime risk for the development of breast cancer is 20% or higher, the patient may qualify for future screening with alternating mammogram and breast MRI. Electronically signed and approved by: Tristin De La Paz DO
--- NOTE | 2023-03-25 07:52 | BD ---
EXAMINATION TYPE: Axial Bone Density DATE OF EXAM: 03/22/2023 CLINICAL HISTORY: 62 years old Female. ICD-10 CODE: Z78.0 POST MENOPAUSAL WITHOUT HRT Height: 62 Weight: 157 FRAX RISK QUESTIONS: Family History (Parent hip fracture): no History of Fracture in Adulthood: no Secondary Osteoporosis: yes 5. Chronic liver disease: yes RISK FACTORS HISTORY OF: Surgery to Spine/Hip(right/left)/Wrist (right/left): no MEDICATIONS: EXAM MEASUREMENTS: Bone mineral densitometry was performed using the [employer]. Bone mineral density as measured about the Lumbar spine is: ----- L1-L4(G/cm2): 1.210 T Score Values are as follows: ----- L1: 0.0 ----- L2: -0.4 ----- L3: 0.1 ----- L4: 0.9 ----- L1-L4: 0.2 Z Score Values are as follows: ----- L1: 1.3 ----- L2: 0.9 ----- L3: 1.4 ----- L4: 2.2 ----- L1-L4: 1.5 Bone mineral density has: Increased 4.8% since study of: 06/11/2017 Bone mineral density about the R hip (g/cm2): 0.891 Bone mineral density about the L hip (g/cm2): 0.920 T Score values are as follows: -----R Neck: -1.8 -----L Neck: -1.5 -----R Total: -0.9 -----L Total: -0.7 Z Score values are as follows: -----R Neck: -0.5 -----L Neck: -0.3 -----R Total: 0.0 -----L Total: 0.3 Bone mineral density has: Decreased -2.1% since study of: 06/11/2017 FRAX%s: The graph provided illustrates a 9.5% chance for a major osteoporotic fx and a 1.2% chance fo r the hips probability for fx in 10 years time. IMPRESSION: Osteopenia (T Score between -2.5 and -1). There is slightly increased risk of fracture and the patient may be considered for treatment. Re-Screen 2-5 years. NOTE: T-SCORE=SD OF THE YOUNG ADULT MEAN.
== END | disposition home or self-care (01) ==
LOC: RADMAMWWP 15:08
PROVIDERS: ATTEND Obstetrics & Gynecology
DX: Z12.31 Encounter for screening mammogram for malignant neoplasm of breast (principal); M85.89 Other specified disorders of bone density and structure, multiple sites; Z78.0 Asymptomatic menopausal state
CPT/HCPCS: 77063; 77067; 77080

== ENCOUNTER → 2023-10-30 | Outpatient (CLI) | payer BC ==
[2023-10-30 13:25] VITALS: BP 131/77; PULSE 74; RESP 16; TEMP 98.2
--- NOTE | 2023-10-30 14:01 | P.SLEEP ---
History of Present Illness DATE: 10/30/2023 CONSULTATION/NEW PATIENT EVALUATION HISTORY OF PRESENT ILLNESS/SLEEP-WAKE EVALUATION: 63-year-old lady had been e valuated in the sleep center for possible obstructive sleep apnea hypopnea syndrome. SLEEP SCHEDULE: Usually sleep schedule from 10:30 PM to 6 AM on weekdays and from midnight until 610 AM on weekend. FALLING ASLEEP: Sometimes patient has difficulties to fall asleep. DURING SLEEP: Patient snores, has dry mouth during the sleep, episodes of gasping for air. Positive history of awakenings from sleep 2 times with nocturia. No history of hypnogogical hallucinations, sleep paralysis, or cataplexy. DURING THE DAY/WAKE STATE: During the day patient has problems with memory, concentration. [place] sleepiness scale is increased to 11. Usually patient does not take naps. PAST MEDICAL HISTORY: Episodes of palpitations, diabetes mellitus, hyperlipidemia, liver cirrhosis. PAST SURGICAL HISTORY: Cholecystectomy, , D&C x 3. MEDICATIONS: Please see below. SOCIAL HISTORY: Please see below. FAMILY HISTORY: Heart problems, asthma, bronchitis, cancer. REVIEW OF SYSTEMS: Snoring, awakenings from sleep, sleepiness during the day. No fevers. No double vision. No recent chest pain. No shortness of breath. No abdominal pain. No bleeding episodes. No blood in urine. No seizure episodes. PHYSICAL EXAMINATION: GENERAL: A pleasant patient without any distress. VITAL SIGNS: Please see below, weight 158 pounds, BMI 28.7. HEENT: PERRLA, EOMI. Evaluation of oropharynx showed tongue protrudes midline, low position of soft palate Mallampati 4. NECK: Supple. No JVD. Thyroid is not palpable. 15 inches in circumference. LUNGS: Clear to percussion and to auscultation. Good air exchange. No wheezing or rhonchi. HEART: S1, S2 regular. No murmurs, gallops or rubs. ABDOMEN: Soft and nontender. Bowel sounds are present. No organomegaly appreciated. EXTREMITIES: No clubbing or cyanosis. LINING STRAP CLOSER: Awake, alert, and oriented x3. Cranial nerves 2 to 7 intact. There is no fasciculation or atrophy noted. No focal deficits observed. ASSESSMENT: 1. Snoring, multiple awakenings from sleep, extremely low position of soft palate Mallampati 4, sleepiness during the day with [place] Sleepiness Scale increased to 11. Obstructive sleep apnea hypopnea syndrome. 2. Liver cirrhosis. 3. Diabetes mellitus. 4. Hyperlipidemia. 5 episodes of palpitations. 6 . Status post cholecystectomy. 7. Status post . 8. Status post D&C x 3. PLAN: 1. Home sleep apnea test for evaluation of patient's breathing during sleep. 2. Following plan after reading sleep study. 3. Preferable position during sleep on the side. 4. No driving if patient feels any sleepiness. Patient is aware of civil and criminal liability for unsafe driving. 5. Sleep hygiene with regular sleep time for at least 7.5-8 hours. 6. Watching weight. Thank you very much for referring this patient for consultation. Sincerely, Douglas Rogers MD, PhD, FAASM. Diplomat of [place] [employer], Sleep Medicine Board by [place] [employer] [place] [employer] Duplication Specialist of [facility] [place] Past Medical History Past Medical History: Coronary Artery Disease (CAD), Diabetes Mellitus, Hyperlipidemia, Liver Disease Additional Past Medical History / Comment(s): Occ fast heart rate on metopropalol Elev triglycerides. Cirrohis of liver April 2021 Type 2 diabetes History of Any Multi-Drug Resistant Organisms: None Reported Past Surgical History: Section, Cholecystectomy Additional Past Surgical History / Comment(s): D&C.. Colonoscopy Past Anesthesia/Blood Transfusion Reactions: No Reported Reaction Past Psychological History: No Psychological Hx Reported Smoking Status: Former smoker Past Alcohol Use History: None Reported Additional Past Alcohol Use History / Comment(s): Smoked 10-15 years, 1 ppd, quit 1992 Past Drug Use History: None Reported - Past Family History Mother Family Medical History: Cancer Additional Family Medical History / Comment(s): liver cancer mets Sister(s) Family Medical History: Cancer Additional Family Medical History / Comment(s): 1 with thyroid, 1 with uterine, 1 with stomach cancers Medications and Allergies Home Medications Medication Instructions Recorded Confirmed Type Cholecalciferol [Vitamin D3 (25 50 mcg PO DAILY 01/25/21 10/30/23 History Mcg = 1000 Iu)] Insulin Aspart [NovoLOG Flexpen] See Protocol SQ AC-TID 01/25/21 10/30/23 History Insulin Glargine,Hum.rec.anlog 25 unit SQ HS 01/25/21 10/30/23 History [Lantus Solostar Pen] Loratadine [Claritin] 10 mg PO DAILY 01/25/21 10/30/23 History Metoprolol Succinate [Toprol XL] 25 mg PO HS 01/25/21 10/30/23 History Multivit-Min/Iron/Folic/Lutein 1 tab PO DAILY 01/25/21 10/30/23 History [Centrum Silver Women Tablet] Albuterol Inhaler [Ventolin Hfa 1 - 2 puff INHALATION RT-QID PRN 05/18/21 10/30/23 History Inhaler] [place]-3/Dha/Epa/Fish Oil [Fish Oil 1 each PO DAILY 10/25/21 10/30/23 History 1,000 mg Softgel] Pravastatin Sodium [Pravachol] 40 mg PO DAILY 11/06/21 10/30/23 History Allergies Allergy/AdvReac Type Severity Reaction Status Date / Time No Known Allergies Allergy Verified 11/06/21 07:28 Physical Exam Vitals: Vital Signs Temp Pulse Resp BP Pulse Ox 10/30/23 13:23 98.2 F 74 16 131/77 97 Intake and Output 10/29/23 10/30/23 10/30/23 22:59 06:59 14:59 Other: Weight 71.668 kg Sleep Note - Sleep Data ESS Total: 11 - Sleep Note Sleep Note: Temperature: 98.2 F Pulse Rate: 74 Respiratory Rate: 16 Blood Pressure: 131/77 SpO2: 97 Height: 5 ft 2.2 in Weight: 71.668 kg BMI: Neck Circumference: 15
== END ==
LOC: 3 N SLEEP 13:00
PROVIDERS: ATTEND Internal Medicine
CPT/HCPCS: 99211

== ENCOUNTER → 2023-11-11 | Outpatient (CLI) | payer BC ==
--- NOTE | 2023-11-13 11:15 | P.PCN ---
Description of Procedure: CLINICAL: A home sleep apnea test has been done for confirmation of possible obstructive sleep apnea-hypopnea syndrome. DESCRIPTION OF PROCEDURE: RESULTS: Recording time was 7 hours 34 minutes. Evaluation time was 7 hours 23 minutes. Evaluation time is sufficient for making conclusion about results of the test. Raw data of sleep recording has been reviewed and is adequate. Respiratory channel showed 0 apneas and 21 hypopneas. Apnea-hypopnea index was 2.8 per hour. Pulse rate in the range between minimum 53, maximum 80, average 64 by computer calculation. Lowest desaturation was 90%. IMPRESSION: 1. No significant respiratory abnormalities have been documented during the home sleep apnea test. Normal oxygenation during sleep. Patient has history of sleepiness during the day with [place] Sleepiness Scale increased to 11. Please see other impressions from consultation. PLAN: 1. I will see patient for follow up visit to discuss results of the test. 2. Sleep hygiene with regular time in bed for at least 8 hours. 3. Watching weight. 4. No driving if feeling any sleepiness. Thank you very much for allowing me to participate in the management of your patient. Sincerely, Douglas Rogers MD, PhD, FAASM Diplomat of [place] [employer] Sleep Medicine Board of [place] [employer] Director Market Research of [facility] cc: Hans Smith MD
== END ==
LOC: 3 N SLEEP 12:58
PROVIDERS: ATTEND Internal Medicine
DX: G47.33 Obstructive sleep apnea (adult) (pediatric) (principal)

== ENCOUNTER → 2024-08-05 | Outpatient (CLI) | payer BC, MEDICARE ==
--- NOTE | 2024-08-05 16:20 | MM ---
Reason for Exam: Screening (asymptomatic). Last mammogram was performed 1 year(s) and 4 month(s) ago. Patient History: Menarche at age 11. First Full-Term at age 33. Late child-bearing (after 30). Postmenopausal. Previous Hyperplasia w/o Atypia at age 61. 11/06/2021, Benign MG stereo VAD BX LT on the left side. Risk Values: Lachelle 5 year model risk: 2.7%. NCI Lifetime model risk: 10.0%. Prior Study Comparison: 10/25/2021 Left MG 3D work up w/cad LT, [facility]. 05/07/2022 Left MG 3D diag mammo w/cad LT, [facility]. 03/22/2023 Bilateral MG 3D screening mammo w/cad, [facility]. Tissue Density: The breasts are heterogeneously dense, which may obscure small masses. Findings: Analyzed By CAD. Unchanged bilateral areas of asymmetric density. Chronic nodularity superior right MLO view middle depth. There is no suspicious group of microcalcifications or new suspicious mass in either breast. Overall Assessment: Benign, BI-RAD 2 Management: Screening Mammogram of both breasts in 1 year. Patient should continue monthly self-breast exams. A clinical breast exam by your physician is recommended on an annual basis. This exam should not preclude additional follow-up of suspicious palpable abnormalities. Note on Lachelle scores and lifetime risk: 1. A Lachelle score greater than 3% is considered moderate risk. If this is the case, consider specialist referral to assess eligibility for a risk reducing agent. 2. If overall lifetime risk for the development of breast cancer is 20% or higher, the patient may qualify for future screening with alternating mammogram and breast MRI. [facility], , 08/05/2024 4:18 PM. Electronically signed and approved by: Lindsey Alonso M.D. Radiologist
== END | disposition home or self-care (01) ==
LOC: RADMAMWWP 14:49
PROVIDERS: ATTEND Obstetrics & Gynecology
DX: Z12.31 Encounter for screening mammogram for malignant neoplasm of breast (principal); R92.333 Mammographic heterogeneous density, bilateral breasts; Z78.0 Asymptomatic menopausal state
CPT/HCPCS: 77063; 77067